=== PATIENT | male | born 1975 | race Caucasian/White ===

== ENCOUNTER 2018-06-09 10:31 | Emergency (ER) | payer OTHER ==
[~2018-06-09] VITALS: Ht 167.6 cm; Wt 79.5 kg
[2018-06-09 11:42] LABS: BASOPHILS % (AUTO) 0.4 % (0.0-2.0); EOSINOPHILS % (AUTO) 0.6 % (1.0-6.0); HEMATOCRIT 45.9 % (41-53); HEMOGLOBIN 15.8 g/dL (13.5-17.5); LYMPHOCYTES # (AUTO) 0.9 K/uL (1.0-4.8); LYMPHOCYTES % (AUTO) 13.9 % (22.0-44.0); MEAN CORPUSCULAR HEMOGLOBIN 31.7 pg (26.0-34.0); MEAN CORPUSCULAR HGB CONC 34.5 G/dL (31.0-37.0); MEAN CORPUSCULAR VOLUME 92 fL (80-100); MONOCYTES # (AUTO) 0.6 K/uL (0.1-1.0); MONOCYTES % (AUTO) 9.3 % (2.0-9.0); NEUTROPHILS # (AUTO) 4.7 K/uL (1.8-7.7); NEUTROPHILS % (AUTO) 75.8 % (40.0-70.0); PLATELET COUNT (AUTO) 157 K/uL (150-450); RED CELL DISTRIBUTION WIDTH 13.9 % (11.5-14.5)
[2018-06-09 11:58] LABS: ANION GAP 11 mmol/L (8-16); CALCIUM, TOTAL 8.9 mg/dL (8.8-10.5); CARBON DIOXIDE 27 mmol/L (22-29); CHLORIDE 102 mmol/L (98-107); GLOMERULAR FILTR. RATE CALC > 60 mL/min (>60); GLUCOSE,RANDOM 104 mg/dL (70-110); POTASSIUM 3.5 mmol/L (3.5-5.1); SODIUM SERUM 140 mmol/L (136-145); UREA NITROGEN, BLOOD 8 mg/dL (7-18)
[2018-06-09 12:02] LABS: ALANINE AMINOTRANSFERASE 269 U/L (12-78); ALBUMIN 3.8 g/dL (3.4-5.0); ALKALINE PHOSPHATASE 108 U/L (46-116); ASPARTATE AMINOTRANSFERASE 308 U/L (15-37); BILIRUBIN,TOTAL 0.4 mg/dL (0.1-1.0); TOTAL PROTEIN, SERUM 7.5 g/dL (6.4-8.2)
[2018-06-09 12:35] VITALS: BP 149/98
== END 2018-06-09 12:43 | disposition home or self-care (01) ==
LOC: EMS 10:34
DX: F10.10 Alcohol abuse, uncomplicated (principal); R74.0 Nonspecific elevation of levels of transaminase and lactic acid dehydrogenase [LDH]; F41.9 Anxiety disorder, unspecified; F12.90 Cannabis use, unspecified, uncomplicated; Y90.6 Blood alcohol level of 120-199 mg/100 ml
CPT/HCPCS: 36415; 80053; 85025; 99285; G0480

== ENCOUNTER 2018-06-15 07:39 | Emergency (ER) | payer OTHER ==
[~2018-06-15] VITALS: Ht 167.6 cm; Wt 77.3 kg
[2018-06-15] MEDS ORDERED: NALO12.5 PO (07:59)
[2018-06-15] MEDS ORDERED: HYDR-4031 PO (07:59)
[2018-06-15] MEDS ORDERED: NALO.4II IV (07:59)
[2018-06-15] MEDS ORDERED: LIB5 PO (07:59)
[2018-06-15] MEDS ORDERED: ACETAMINOPHEN/CODEINE 300-30 MG TABLET PO ONE (08:30)
[2018-06-15 10:30] VITALS: BP 124/82
== END 2018-06-15 10:52 | disposition home or self-care (01) ==
LOC: EMS 07:40
DX: S92.324A Nondisplaced fracture of second metatarsal bone, right foot, initial encounter for closed fracture (principal); S92.334A Nondisplaced fracture of third metatarsal bone, right foot, initial encounter for closed fracture; S92.344A Nondisplaced fracture of fourth metatarsal bone, right foot, initial encounter for closed fracture; S92.354A Nondisplaced fracture of fifth metatarsal bone, right foot, initial encounter for closed fracture; W18.2XXA Fall in (into) shower or empty bathtub, initial encounter; S92.221A Displaced fracture of lateral cuneiform of right foot, initial encounter for closed fracture; Y93.89 Activity, other specified; Y92.89 Other specified places as the place of occurrence of the external cause; Y99.8 Other external cause status
CPT/HCPCS: 29515

== ENCOUNTER 2018-06-16 19:21 | Emergency (ER) | payer OTHER ==
[~2018-06-16] VITALS: Ht 167.6 cm; Wt 77.3 kg
[~2018-06-16 19:21] MED LIST: HYDR-4031 PO; LIB5 PO; NALO.4II IV; NALO12.5 PO
[2018-06-16 21:41] VITALS: BP 138/86
== END 2018-06-16 21:52 | disposition home or self-care (01) ==
LOC: EMS 19:24
DX: F10.239 Alcohol dependence with withdrawal, unspecified (principal); F12.90 Cannabis use, unspecified, uncomplicated; F17.200 Nicotine dependence, unspecified, uncomplicated

== ENCOUNTER 2020-09-15 17:06 | Inpatient (IN) | payer MEDICAID, OTHER ==
[~2020-09-15] VITALS: Ht 167.6 cm; Wt 77.3 kg
[~2020-09-15 17:06] MED LIST changes: -NALO.4II IV; -NALO12.5 PO; +NALO12.52 PO
[2020-09-15] MEDS ORDERED: ChlordiazePOXIDE HCL 25 MG CAPSULE PO ONE ×2 (18:00→18:45)
[2020-09-15 18:12] LABS: BASOPHILS % (AUTO) 0.3 % (0.0-2.0); EOSINOPHILS % (AUTO) 0.3 % (1.0-6.0); HEMATOCRIT 51.1 % (41-53); HEMOGLOBIN 17.3 g/dL (13.5-17.5); LYMPHOCYTES # (AUTO) 3.6 K/uL (1.0-4.8); LYMPHOCYTES % (AUTO) 29.6 % (22.0-44.0); MEAN CORPUSCULAR HEMOGLOBIN 30.1 pg (26.0-34.0); MEAN CORPUSCULAR HGB CONC 33.9 G/dL (31.0-37.0); MEAN CORPUSCULAR VOLUME 89 fL (80-100); MONOCYTES % (AUTO) 7.8 % (2.0-9.0); NEUTROPHILS # (AUTO) 7.6 K/uL (1.8-7.7); PLATELET COUNT (AUTO) 250 K/uL (150-450); RED BLOOD CELL COUNT(AUTO) 5.74 MIL/uL (4.50-5.90); RED CELL DISTRIBUTION WIDTH 14.3 % (11.5-14.5)
[2020-09-15 18:14] LABS: COVID AG,FIA SOURCE NASOPHARYNGEAL
[2020-09-15 18:29] LABS: ALANINE AMINOTRANSFERASE 115 U/L (12-78); ALBUMIN 4.5 g/dL (3.4-5.0); ALKALINE PHOSPHATASE 77 U/L (46-116); ANION GAP 19 mmol/L (8-16); ASPARTATE AMINOTRANSFERASE 82 U/L (15-37); BILIRUBIN,TOTAL 0.6 mg/dL (0.1-1.0); CALCIUM, TOTAL 9.5 mg/dL (8.8-10.5); CARBON DIOXIDE 21 mmol/L (22-29); CHLORIDE 101 mmol/L (98-107); CREATININE 0.79 mg/dL (0.60-1.30); GLOMERULAR FILTR. RATE CALC > 60 mL/min (>60); GLUCOSE,RANDOM 133 mg/dL (70-110); SODIUM SERUM 141 mmol/L (136-145); TOTAL PROTEIN, SERUM 8.4 g/dL (6.4-8.2); UREA NITROGEN, BLOOD 9 mg/dL (7-18)
[2020-09-15 18:32] LABS: POTASSIUM 2.9 mmol/L (3.5-5.1)
[2020-09-15] MEDS ORDERED: POTASSIUM CHLORIDE 20 MEQ ER TABLET PO ONE (18:45)
[2020-09-15] MEDS ORDERED: LORazepam 2 MG/ML VIAL IVP ONE (19:00)
[2020-09-15] MEDS ORDERED: SODIUM CHLORIDE 0.9% 1,000 ML IV ONE (19:00)
[2020-09-15] MEDS ORDERED: ChlordiazePOXIDE HCL 25 MG CAPSULE PO PRN (20:45)
[2020-09-15] MEDS ORDERED: HALOPERIDOL 5 MG TABLET PO PRN (20:45)
[2020-09-15] MEDS: LORazepam 2 MG TABLET PO PRN (21:57)
[2020-09-16] VITALS (15 sets, daily range): BP systolic 122–179; BP diastolic 69–118
[2020-09-16] MEDS: ChlordiazePOXIDE HCL 25 MG CAPSULE PO PRN ×3 (01:02→14:52)
[2020-09-16] MEDS: ZOLPIDEM TARTRATE 10 MG TABLET PO PRN ×2 (01:03→21:29)
[2020-09-16 07:35] LABS: CHOL/HDL RATIO 3.5 (4.2-7.3)
[2020-09-16] MEDS: ChlordiazePOXIDE HCL 25 MG CAPSULE PO SCH ×4 (08:27→20:26)
[2020-09-16] MEDS: CloNIDine HCL 0.1 MG TABLET PO PRN (16:32)
[2020-09-16] MEDS: QUEtiapine FUMARATE 25 MG TABLET PO SCH (20:26)
[2020-09-17] VITALS (8 sets, daily range): BP systolic 115–164; BP diastolic 75–101
[2020-09-17] MEDS: LORazepam 2 MG TABLET PO PRN (03:40)
[2020-09-17 07:42] LABS: FREE T4 (FREE THYROXINE) 0.82 ng/dL (0.76-1.46); THYROID STIMULATING HORMONE 3.51 uIU/mL (0.36-3.74)
[2020-09-17] MEDS: SERTRALINE HCL 50 MG TABLET PO SCH (08:28)
[2020-09-17] MEDS: ChlordiazePOXIDE HCL 25 MG CAPSULE PO SCH ×4 (08:29→20:18)
[2020-09-17] MEDS: CloNIDine HCL 0.1 MG TABLET PO PRN (18:17)
[2020-09-17] MEDS ORDERED: DOCUSATE SODIUM 100 MG CAPSULE PO PRN (20:15)
[2020-09-17] MEDS ORDERED: IBUPROFEN 400 MG TABLET PO PRN (20:15)
[2020-09-17] MEDS ORDERED: PETROLATUM,WHITE 28 GM JELLY TP PRN (20:15)
[2020-09-17] MEDS ORDERED: GuaiFENesin/D-METHORPHAN [SUGAR-FREE] 200-20MG/10 ML SYRUP UDCUP PO PRN (20:15)
[2020-09-17] MEDS ORDERED: MAG HYDROX/AL HYDROX/SIMETH ES 30 ML SUSPENSION UDCUP PO PRN (20:15)
[2020-09-17] MEDS ORDERED: ACETAMINOPHEN 325 MG TABLET PO PRN (20:15)
[2020-09-17] MEDS ORDERED: ONDANSETRON HCL 4 MG TABLET PO PRN (20:15)
[2020-09-17] MEDS ORDERED: ALBUTEROL SULFATE HFA 90 MCG/PUFF 8 GM INHALER IH PRN (20:15)
[2020-09-17] MEDS ORDERED: LOPERAMIDE HCL 2 MG CAPSULE PO PRN (20:15)
[2020-09-17] MEDS ORDERED: NICOTINE 14 MG/24 HOUR PATCH TD PRN (20:15)
[2020-09-17] MEDS ORDERED: MAGNESIUM HYDROXIDE SUSPENSION 30 ML UDCUP PO PRN (20:15)
[2020-09-17] MEDS ORDERED: CloNIDine HCL 0.1 MG TABLET PO PRN (20:15)
[2020-09-17] MEDS: QUEtiapine FUMARATE 25 MG TABLET PO SCH (20:18)
[2020-09-17] MEDS: ZOLPIDEM TARTRATE 10 MG TABLET PO PRN (21:17)
[2020-09-18] VITALS (8 sets, daily range): BP systolic 116–155; BP diastolic 62–94
[2020-09-18] MEDS ORDERED: ChlordiazePOXIDE HCL 10 MG CAPSULE PO PRN (07:00)
[2020-09-18] MEDS: SERTRALINE HCL 50 MG TABLET PO SCH (08:41)
[2020-09-18] MEDS: ChlordiazePOXIDE HCL 10 MG CAPSULE PO SCH ×4 (08:42→20:46)
[2020-09-18] MEDS: LORazepam 2 MG TABLET PO PRN (17:38)
[2020-09-18] MEDS ORDERED: TraZODone HCL 100 MG TABLET PO SCH (21:00)
[2020-09-18] MEDS ORDERED: QUEtiapine FUMARATE 300 MG TABLET PO SCH (21:00)
[2020-09-18] MEDS: ZOLPIDEM TARTRATE 10 MG TABLET PO PRN (21:18)
[2020-09-19 04:51] VITALS: BP 118/86
[2020-09-19] MEDS ORDERED: ChlordiazePOXIDE HCL 10 MG CAPSULE PO PRN (07:00)
[2020-09-19 08:16] VITALS: BP 117/76
[2020-09-19] MEDS ORDERED: BuPROPion HCL XL 150 MG ER TABLET PO SCH (09:00)
[2020-09-19] MEDS ORDERED: TRAZ-257 PO (13:15)
[2020-09-19] MEDS ORDERED: MIRT-89 PO (13:16)
[2020-09-19] MEDS ORDERED: BUPR-93 PO (13:17)
[2020-09-19] MEDS ORDERED: QUET300T2 PO (13:17)
[2020-09-19] MEDS ORDERED: MIRTAZAPINE 15 MG TABLET PO SCH (21:00)
== END 2020-09-19 14:07 | disposition home or self-care (01) | DRG 751 ==
LOC: EMS 17:06 → B2S 09-16 00:23
PROVIDERS: ADMIT Psychiatry & Neurology Child & Adolescent Psychiatry; ATTEND Psychiatry & Neurology Child & Adolescent Psychiatry
DX: F33.3 Major depressive disorder, recurrent, severe with psychotic symptoms (principal); R45.851 Suicidal ideations; Z91.14 Patient's other noncompliance with medication regimen; E87.6 Hypokalemia; E78.5 Hyperlipidemia, unspecified; D72.829 Elevated white blood cell count, unspecified; F10.10 Alcohol abuse, uncomplicated; F41.9 Anxiety disorder, unspecified; I10 Essential (primary) hypertension; Z59.0 Homelessness; F12.90 Cannabis use, unspecified, uncomplicated; Z20.822 Contact with and (suspected) exposure to COVID-19
CPT/HCPCS: 80053; 80061; 84132; 84439; 84443; 85025; 99285; G0480; J2060

== ENCOUNTER 2021-06-07 20:21 | Emergency (ER) | payer MEDICAID, OTHER ==
[~2021-06-07] VITALS: Ht 167.6 cm; Wt 87.0 kg
[~2021-06-07 20:21] MED LIST changes: +BUPR-50 PO; -HYDR-4031 PO; -LIB5 PO; +MIRT-89 PO; -NALO12.52 PO; +QUET300T2 PO; +TRAZ-257 PO
[2021-06-07 20:23] VITALS: BP 138/89
[2021-06-07 20:48] LABS: BASOPHILS % (AUTO) 0.3 % (0.0-2.0); EOSINOPHILS % (AUTO) 0.9 % (1.0-6.0); HEMATOCRIT 45.2 % (41-53); HEMOGLOBIN 15.8 g/dL (13.5-17.5); LYMPHOCYTES # (AUTO) 2.4 K/uL (1.0-4.8); LYMPHOCYTES % (AUTO) 31.1 % (22.0-44.0); MEAN CORPUSCULAR HEMOGLOBIN 30.8 pg (26.0-34.0); MEAN CORPUSCULAR HGB CONC 34.9 G/dL (31.0-37.0); MEAN CORPUSCULAR VOLUME 88 fL (80-100); MONOCYTES # (AUTO) 0.5 K/uL (0.1-1.0); NEUTROPHILS # (AUTO) 4.7 K/uL (1.8-7.7); NEUTROPHILS % (AUTO) 60.7 % (40.0-70.0); PLATELET COUNT (AUTO) 175 K/uL (150-450); RED BLOOD CELL COUNT(AUTO) 5.12 MIL/uL (4.50-5.90); RED CELL DISTRIBUTION WIDTH 13.7 % (11.5-14.5)
[2021-06-07 20:54] LABS: PATHOLOGY REVIEW, DIFF SEE NOTE.
[2021-06-07 21:22] LABS: ANION GAP 14 mmol/L (8-16); CALCIUM, TOTAL 9.2 mg/dL (8.8-10.5); CARBON DIOXIDE 30 mmol/L (22-29); CHLORIDE 98 mmol/L (98-107); CREATININE 1.04 mg/dL (0.60-1.30); GLOMERULAR FILTR. RATE CALC > 60 mL/min (>60); GLUCOSE,RANDOM 139 mg/dL (70-110); POTASSIUM 3.6 mmol/L (3.5-5.1); SODIUM SERUM 142 mmol/L (136-145); UREA NITROGEN, BLOOD 12 mg/dL (7-18)
[2021-06-07 21:27] LABS: COVID AG,FIA SOURCE NASAL SWAB
[2021-06-07 21:28] LABS: ALANINE AMINOTRANSFERASE 266 U/L (12-78); ALBUMIN 4.2 g/dL (3.4-5.0); ALKALINE PHOSPHATASE 85 U/L (46-116); ASPARTATE AMINOTRANSFERASE 248 U/L (15-37); BILIRUBIN,TOTAL 0.6 mg/dL (0.1-1.0); TOTAL PROTEIN, SERUM 8.1 g/dL (6.4-8.2)
[2021-06-08] MEDS ORDERED: LORazepam 1 MG TABLET PO ONE
== END 2021-06-08 01:56 | disposition home or self-care (01) ==
LOC: EMS 20:24
DX: F10.20 Alcohol dependence, uncomplicated (principal); F32.A Depression, unspecified; F41.9 Anxiety disorder, unspecified; Z20.822 Contact with and (suspected) exposure to COVID-19; Y90.6 Blood alcohol level of 120-199 mg/100 ml
CPT/HCPCS: 36415; 80053; 85025; 87426; 99284; G0480; 99283